=== PATIENT | male | born 1965 | race Caucasian/White ===

== ENCOUNTER 2020-05-28 12:44 | Day surgery (SDC) | payer OTHER ==
[~2020-05-28] VITALS: Ht 165.1 cm; Wt 78.0 kg
[~2020-05-28 12:44] MED LIST: ASPI-1444 PO; CARV3 PO; CARV6 PO; FENO160T41 PO; GABA-1181 PO; INSLAN SQ; LATA2.5D14 OU; LEVO5DRO6 OU; OMEG-116 PO; ROSU20TA23 PO
[2020-05-28] MEDS ORDERED: FentaNYL CITRATE PF 100 MCG/2 ML VIAL IVP ONE (12:45)
[2020-05-28] MEDS ORDERED: ONDANSETRON HCL 4 MG/2 ML VIAL IVP ONE (12:45)
[2020-05-28] MEDS ORDERED: PROPOFOL 1% 20 ML VIAL IVP ONE (12:45)
[2020-05-28] MEDS ORDERED: KETAMINE HCL 50 MG/ML 10 ML VIAL IVP ONE (12:45)
[2020-05-28] MEDS ORDERED: MIDAZOLAM HCL 2 MG/2 ML VIAL IVP ONE (12:45)
[2020-05-28] MEDS ORDERED: HEPARIN SODIUM,PORCINE 1,000 UNITS/ML 10 ML VIAL IVP ONE (12:45)
[2020-05-28] MEDS ORDERED: LIDOCAINE/PF 2% 5 ML VIAL IM ONE (12:45)
[2020-05-28] MEDS ORDERED: SODIUM CHLORIDE 0.9% 1,000 ML ONE (12:50)
[2020-05-28] MEDS ORDERED: SODIUM CHLORIDE 0.9% 1,000 ML IV ONE (13:00)
[2020-05-28 13:33] LABS: GLUCOMETER DEV NAME(LOC) SDS.; GLUCOSE,POINT OF CARE 241 MG/DL (70-110)
[2020-05-28] MEDS ORDERED: HYDROCODONE/ACETAMINOPHEN 5-325 MG TABLET PO ONE (13:45)
[2020-05-28 13:48] LABS: BASOPHILS % (AUTO) 1.1 % (0.0-2.0); EOSINOPHILS % (AUTO) 2.9 % (1.0-6.0); HEMATOCRIT 28.9 % (41-53); HEMOGLOBIN 10.1 g/dL (13.5-17.5); LYMPHOCYTES # (AUTO) 2.3 K/uL (1.0-4.8); LYMPHOCYTES % (AUTO) 21.8 % (22.0-44.0); MEAN CORPUSCULAR HEMOGLOBIN 30.8 pg (26.0-34.0); MEAN CORPUSCULAR VOLUME 88 fL (80-100); MONOCYTES # (AUTO) 0.5 K/uL (0.1-1.0); MONOCYTES % (AUTO) 4.7 % (2.0-9.0); NEUTROPHILS # (AUTO) 7.5 K/uL (1.8-7.7); NEUTROPHILS % (AUTO) 69.5 % (40.0-70.0); PLATELET COUNT (AUTO) 351 K/uL (150-450); RED BLOOD CELL COUNT(AUTO) 3.29 MIL/uL (4.50-5.90); RED CELL DISTRIBUTION WIDTH 13.2 % (11.5-14.5)
[2020-05-28 13:57] LABS: CREATININE 3.64 mg/dL (0.60-1.30); POTASSIUM 4.4 mmol/L (3.5-5.1); PROTHROMBIN TIME 10.9 SEC (9.4-11.6)
[2020-05-28 14:10] LABS: ALBUMIN 2.8 g/dL (3.4-5.0); BILIRUBIN,TOTAL 0.2 mg/dL (0.1-1.0); TOTAL PROTEIN, SERUM 7.1 g/dL (6.4-8.2)
[2020-05-28] MEDS ORDERED: HEPARIN SODIUM,PORCINE 5,000 UNITS/ML VIAL ONE (15:39)
[2020-05-28] MEDS ORDERED: BACITRACIN 50,000 UNITS/VIAL ONE (15:39)
[2020-05-28] MEDS ORDERED: LIDOCAINE/PF 1% 30 ML VIAL ONE (15:39)
== END 2020-05-28 17:30 | disposition home or self-care (01) ==
LOC: SURGERY 12:44
PROVIDERS: ATTEND Surgery
DX: I12.0 Hypertensive chronic kidney disease with stage 5 chronic kidney disease or end stage renal disease (principal); N18.6 End stage renal disease; E11.22 Type 2 diabetes mellitus with diabetic chronic kidney disease; D64.9 Anemia, unspecified; Z79.4 Long term (current) use of insulin; Z79.899 Other long term (current) drug therapy; Z86.73 Personal history of transient ischemic attack (TIA), and cerebral infarction without residual deficits
CPT/HCPCS: 36415; 36821; 80053; 82962; 85025; 85610; 85730; J0690; J1644 ×2; J2250; J2405; J2704; J3010; J3490 ×4; J7030